=== PATIENT | female | born 1975 | race Caucasian/White ===

== ENCOUNTER 2016-07-17 13:20 | Emergency (ER) | payer SELFPAY ==
[2016-07-17] MEDS ORDERED: ONDANSETRON 4 MG/2 ML VIAL IVP ONE (13:29)
[2016-07-17] MEDS ORDERED: KETOROLAC 30 MG/1 ML VIAL IVP ONE (13:29)
[2016-07-17] MEDS ORDERED: Sodium Chloride 0.9% 1,000 ML PRIMARY IV ONE (13:29)
[2016-07-17] MEDS ORDERED: IPRATROPIUM/ALBUTEROL SULFATE 3 ML NEB NEB ONE ×2 (13:30→13:38)
[2016-07-17 13:34] VITALS: RESP 19; TEMP 98.1
--- NOTE | 2016-07-17 13:35 | PDOC ---
Upper Respiratory HPI - General Chief Complaint: Respiratory Complaint Stated Complaint: COUGH/FEVER/NAUSEA/DIARRHEA x4 DAYS Date Seen by Provider: 07/17/16 Time Seen by Provider: 13:31 Source: POSITIVE: Patient Exam Limitations: POSITIVE: No limitations Nurse's Notes Reviewed & Considered: Yes - History of Present Illness Initial Comments: Patient comes in today with a four-day history of cough and fever. Patient with cough, fever, nausea, vomiting, and diarrhea that he been ongoing for 4 days comes in because symptoms continued to increase. She does have myalgias, denies rashes, she does have a headache. Denies any chest pain but does have shortness of breath and cough, denies any hematuria or dysuria. Timing: REPORTS: Constant, Getting Worse Duration: <1 week Severity: Moderate Modifying Factors: improves with: Rest, Exertion, Coughing Associated Symptoms: REPORTS: Fever, Chills, Sweating, Runny Nose, Hoarseness, Cough, Shortness of Breath Similar Symptoms Previously: No Recently seen/treated/hospitalized: No Any Prior Injuries Related to Current Complaint?: No - Patient Home Medications Home Medications: Home Medications NK [No Home Medications Reported] 07/17/16 - Patient Allergies Allergies/Adverse Reactions: Allergies Allergy/AdvReac Type Severity Reaction Status Date / Time No Known Drug Allergies Allergy NOT Verified 07/17/16 13:27 APPLICABLE Past Medical History History of MDRO: No ROS - Limitations ROS Limitations: No Limitations Constitution: REPORTS: Chills, Fever, Diaphoresis Cardiovascular: REPORTS: Denies Cardiac Symptoms Respiratory: REPORTS: Cough Non Productive, Shortness Of Breath, Wheezing Neurological: REPORTS: Headache Gastrointestinal: REPORTS: Abdominal Pain, Nausea, Vomitting, Diarrhea Endocrine: REPORTS: Denies Symptoms Musculoskeletal: REPORTS: Back Pain Genitourinary: REPORTS: Denies Symptoms Eyes: REPORTS: Denies Symptoms ENT: REPORTS: Denies Symptoms Skin: REPORTS: Denies Skin Symptoms Lympathic: REPORTS: Denies Lympathic Symptoms Immunologic: POSITIVE: Denies Symptoms Psychiatric: POSITIVE: Denies Psych Symptoms Upper Respiratory/Fever Exam - General Appearance General Appearance: REPORTS: Alert, Cooperative, No Acute Distress, No Evidence of Trauma - HEENT HEENT: POSITIVE: Head Inspection Nml, Eyes Inspection Nml, Ears Inspection Nml, Nose Inspection Nml, PERRL, EOMI - Neck Neck: REPORTS: Normal Inspection, Supple - Respiratory Respiratory: REPORTS: No Respiratory Distress, No Pleuritic Chest Pain, Speaks Full Sentences, Wheezes - Abdomen Abdomen: Soft: (All Quadrants), Normal Bowel Sounds: (All Quadrants), Denies Tenderness: (All Quadrants) - Cardiovascular Cardiovascular: REPORTS: Regular Rate and Rhythm, Heart Sounds Normal - Skin Skin: REPORTS: Intact, Normal For Race, Warm, Dry, No Rash - Extremities Extremity: Non-Tender: (All Extremities), Normal ROM: (All Extremities), Normal Inspection: (All Extremities) - Neurological / Psychological Neurological: POSITIVE: Affect Apporpriate, Oriented X3 Upper Resp/Fever Progress - Results Reviewed by me Xrays/CTs/US Reviewed by me: Yes Discussed with Radiologist: No Lab Results Reviewed: Yes Lab Results:: Laboratory Results 07/17/16 07/17/16 Range/Units 13:29 13:40 WBC 4.47 L (4.8-10.8) 10^3/uL RBC 4.59 (4.20-5.40) 10^6/uL Hgb 15.1 (12.0-16.0) g/dL Hct 43.1 (37.0-47.0) % MCV 93.9 (81-99) FL MCH 32.9 H (27-31) PG MCHC 35.0 (33-37) g/dL RDW Std Deviation 44.7 (39-50) fL RDW Coeff of Elizabeth 13.3 (11.5-14.5) % Plt Count 184 (140-350) 10*3/uL MPV 9.3 (7.4-12.2) FL Immature Gran % (Auto) 0 (0-5) % Neut % (Auto) 60.7 (50-80) % Lymph % (Auto) 29.1 (10-50) % [place] % (Auto) 8.5 (5-15) % Eos % (Auto) 1.3 (0-8) % Baso % (Auto) 0.4 (0-1) % Immature Gran # (Auto) 0 10*3/UL Neut # (Auto) 2.71 10*3/UL Lymph # (Auto) 1.30 10*3/uL [place] # (Auto) 0.38 (0.3-0.8) 10*3/UL Eos # (Auto) 0.06 10*3/UL Baso # (Auto) 0.02 10*3/UL WBC Morphology Comment Normal morphology (NORM) Plt Morphology Comment Normal morphology (NORM) RBC Morph Comment Normal morphology (NORM) Sodium 139 (135-145) meq/L Potassium 3.8 (3.8-5.2) meq/L Chloride 109 (98-112) meq/L Carbon Dioxide 20 L (23-33) meq/L Anion Gap 10 (5-20) BUN 11 (7-22) mg/dL Creatinine 0.8 (0.50-1.20) mg/dL Estimated GFR > 60 (>60 ml/min/1.73m(2)) BUN/Creatinine Ratio 13.75 (6-20) Glucose 91 (78-110) mg/dL Calculated Osmolality 286.0 (267-292) mOsm/kg Calcium 9.0 (8.7-10.7) mg/dL Magnesium 1.9 (1.6-2.4) mg/dL Total Bilirubin 0.6 (0.3-1.2) mg/dL AST 66 H (8-39) IU/L ALT 83 H (9-52) IU/L Alkaline Phosphatase 86 (38-126) IU/L Total Protein 7.0 (6.1-8.0) g/dL Albumin 4.0 (3.5-4.8) g/dL Globulin 3.0 (2.50-4.10) g/dL Albumin/Globulin Ratio 1.30 (1.3-2.0) mg/g - Patient's Progress Pain Medication Addressed: POSITIVE: Yes Re-Examine Time: 14:37 Status: POSITIVE: Improved MDM / ED Course: Patient was examined, an IV started, blood drawn and sent to the lab for studies , chest x-ray was obtained. Patient received IV Toradol, normal saline, Zofran. She also received a DuoNeb updraft. She now feels significantly better. Findings: CBC shows a white count of 4, influenza is negative. Chest x-ray is by me shows no acute cardiopulmonary decompensation. Assessment: Upper respiratory infection, wheezing. Plan: Discharge home with Combivent prescription. Follow Up with primary care physician. Air Movement: Good Antibiotics Given: No Nebulizer Treatment Given:: Yes Quality Measure Initiative: CAP: POSITIVE: SaO2, VS, CXR or CT - Consult Counseled: POSITIVE: Patient, Family, RE: Lab Results, RE: Radiology Results, RE : DX, RE: Need for F/U RX Given: Yes (Combivent) Patient Care Time - Estimated PCT Patient Care Time (In Minutes): 30 Vital Signs - Recent Vital Signs Vital Signs: Vital Signs (Last 8 hours) Temp Pulse Resp BP Pulse Ox 07/17/16 13:20 98.1 F 74 19 105/88 95 - VS Reviewed Vital Signs Reviewed: Yes Discharge Clinical Impression: Wheezing Discharge Disposition: Discharged to Home Condition: Stable Patient Instructions Given at Discharge: Viral Syndrome (ED)
[2016-07-17 13:52] LABS: BASOPHILS # (AUTO) 0.02 10*3/UL; BASOPHILS % (AUTO) 0.4 % (0-1); EOSINOPHILS % (AUTO) 1.3 % (0-8); HEMATOCRIT 43.1 % (37.0-47.0); HEMOGLOBIN 15.1 g/dL (12.0-16.0); IMM GRAN % (AUTO) 0 % (0-5); IMM GRAN# (AUTO) 0 10*3/UL; LYMPHOCYTES % (AUTO) 29.1 % (10-50); MEAN CORPUSCULAR HEMOGLOBIN 32.9 PG (27-31); MEAN PLATELET VOLUME 9.3 FL (7.4-12.2); MONOCYTES # (AUTO) 0.38 10*3/UL (0.3-0.8); MONOCYTES % (AUTO) 8.5 % (5-15); NEUTROPHILS # (AUTO) 2.71 10*3/UL; NEUTROPHILS % (AUTO) 60.7 % (50-80); RDW COEFFICIENT OF VARIATION 13.3 % (11.5-14.5); RED BLOOD COUNT 4.59 10^6/uL (4.20-5.40); WHITE BLOOD COUNT 4.47 10^3/uL (4.8-10.8)
[2016-07-17 13:55] LABS: PLATELET MORPHOLOGY COMMENT NORMAL MORPHOLOGY (NORM)
[2016-07-17 14:02] LABS: ASPARTATE AMINO TRANSFERASE 66 IU/L (8-39); BILIRUBIN,TOTAL 0.6 mg/dL (0.3-1.2); BLOOD UREA NITROGEN 11 mg/dL (7-22); BUN/CREATININE RATIO 13.75 (6-20); CHLORIDE 109 meq/L (98-112); CREATININE 0.8 mg/dL (0.50-1.20); EST GLOMERULAR FILTRATION > 60 (>60 ml/min/1.73m(2)); GLUCOSE 91 mg/dL (78-110); MAGNESIUM 1.9 mg/dL (1.6-2.4); POTASSIUM 3.8 meq/L (3.8-5.2); SODIUM 139 meq/L (135-145)
--- NOTE | 2016-07-18 14:14 | DI ---
PA /LATERAL CHEST X-RAY, 07/17/2016 1:29 PM : Clinical History: Fever. Cough. Previous Exam: None at this facility. There is no acute soft tissue or bony abnormality. Heart size is normal. Lungs are clear. Mediastinal structures are normal. There are no pulmonary nodules. Reading: Normal chest x-ray.
== END 2016-07-17 14:50 | disposition home or self-care (01) ==
LOC: ER 13:20
DX: R06.2 Wheezing (principal); R50.9 Fever, unspecified; R11.2 Nausea with vomiting, unspecified; R19.7 Diarrhea, unspecified; R51 Headache; R06.02 Shortness of breath
CPT/HCPCS: 71020; 80053; 83735; 85025; 87804; 94640; 96361; 96374; 96375; 99283 ×2; J1885; J7620; J2405; J7030